=== PATIENT | female | born 1970 | race Caucasian/White ===

== ENCOUNTER 2020-04-06 09:27 | Outpatient (CLI) | payer BC ==
--- NOTE | 2020-04-06 10:04 | CT Report ---
PROCEDURE: Sinuses INDICATIONS: CHRONIC SINUSITIS TECHNIQUE: Noncontrast 3.0 mm axial images acquired from the frontal sinuses to the mid-sella, with coronal and sagittal reformats. For radiation dose reduction, the following was used: automated exposure control , adjustment of mA and/or kV according to patient size. COMPARISON: None. FINDINGS: Image quality: Excellent. Maxillary Sinuses: No bony remodeling or destruction. Sinuses are clear. Ethmoid Air Cells: No bony remodeling or destruction. Sinuses are clear. Sphenoid Sinuses: No bony remodeling or destruction. Sinuses are clear. Frontal Sinuses: No bony remodeling or destruction. Sinuses are clear. Ostiomeatal Complexes: Ostiomeatal complexes are patent. No Myra cells. Miscellaneous: Visualized intra-orbital contents are normal. No khris bullosa. S-shaped deviation of the nasal septum with spurring to the left at the level of the middle nasal turbinate. IMPRESSION: No findings of acute or chronic sinusitis. Nasal septal deviation. Reviewed by: Serg Grijalva MD on 04/06/2020 10:03 AM [facility] Approved by: Serg Grijalva MD on 04/06/2020 10:03 AM PST Station ID: [id number]
== END 2020-04-06 09:28 | disposition home or self-care (01) ==
LOC: DI 09:27
PROVIDERS: ATTEND Naprapath
DX: J34.2 Deviated nasal septum (principal)
CPT/HCPCS: 70486

== ENCOUNTER 2020-08-25 09:47 | Outpatient (CLI) | payer BC ==
--- NOTE | 2020-08-25 10:36 | XRAY Report ---
PROCEDURE: Toe(s) LT INDICATIONS: PAIN IN LEFT TOE, 5TH DIGIT TECHNIQUE: 3 views of the 5th toe(s) acquired. COMPARISON: None FINDINGS: Bones: Subtle lucency along the base of the middle phalanx of the fifth digit may represent nondispla jennie fracture. No dislocation. Moderate degenerative changes of the first metatarsophalangeal joint as well as within the midfoot. Focal regions of cortical thickening along the lateral aspect of the sec ond and third metatarsals. Soft tissues: Mild soft tissue swelling of the fifth toe. IMPRESSION: Questionable nondisplaced fracture of the middle phalanx of the fifth toe. Focal cortical thickening of the second and third digits may represent chronic stress changes. Moderate degenerative changes of the first metatarsophalangeal joint and midfoot. Reviewed by: Prashanth Faustin DO on 08/25/2020 9:35 AM [facility] Approved by: Prashanth Faustin DO on 08/25/2020 9:35 AM [facility] Station ID: [id number]
== END 2020-08-25 23:59 | disposition home or self-care (01) ==
LOC: DI.S 09:47
PROVIDERS: ATTEND Physician Assistant
DX: M19.072 Primary osteoarthritis, left ankle and foot (principal)

== ENCOUNTER 2021-09-06 22:08 | Emergency (ER) | payer BC ==
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
[2021-09-06] MEDS ORDERED: HYDROmorphone 1 MG/ML CARPUJECT IM STA ×2 (22:48→23:42)
[2021-09-06] MEDS ORDERED: SILVER SULFADIAZINE CREAM 25 GM TUBE TOP STA (22:48)
[2021-09-06] MEDS ORDERED: oxyCODONE 5 MG TABLET PO STA (23:42)
[2021-09-07 00:15] VITALS: BP 124/88
== END 2021-09-07 00:14 | disposition home or self-care (01) ==
LOC: ED 22:08
DX: T25.221A Burn of second degree of right foot, initial encounter (principal); T25.222A Burn of second degree of left foot, initial encounter; X12.XXXA Contact with other hot fluids, initial encounter; Y93.G9 Activity, other involving cooking and grilling
CPT/HCPCS: 99283; A9270; J1170

== ENCOUNTER 2023-01-15 07:00 | Outpatient (CLI) | payer BC ==
--- NOTE | 2023-01-15 16:48 | XRAY Report ---
PROCEDURE: Thoracic Spine 2 View INDICATIONS: THORACIC BACK PAIN/FALL TECHNIQUE: 2 views of the thoracic spine were acquired. COMPARISON: None. FINDINGS: Bones: No fractures or dislocations. No suspicious bony lesions. Visualized ribs are intact. Multil evel disc space narrowing and endplate osteophyte formation. Soft tissues: No paravertebral stripe thickening. IMPRESSION: Multilevel degenerative disc disease. No acute fracture. No osseous lesion. If symptoms and/or clinic al suspicion for pathology continue, further assessment with repeat plain films, or advanced imaging (e.g., CT, MRI, or bone scan) is recommended for further assessment. Reviewed by: Shweta Mckinley MD on 01/15/2023 4:47 PM PDT Approved by: Shweta Mckinley MD on 01/15/2023 4:47 PM PDT Station ID: [id number]
--- NOTE | 2023-01-15 16:48 | XRAY Report ---
PROCEDURE: Cervical Spine 2 View INDICATIONS: NECK PAIN/FALL TECHNIQUE: 4 view(s) of the cervical spine were acquired. COMPARISON: None. FINDINGS: Bones: No fractures or dislocations to the C7 level. The lateral masses of C1 appear intact on the odontoid view. No suspicious bony lesions. Multilevel disc space narrowing and endplate osteophyte formation as well as facet hypertrophy. Soft tissues: No prevertebral soft tissue swelling. IMPRESSION: Multilevel degenerative disc and facet disease. No acute fracture. No osseous lesion. If symptoms and/or clinical suspicion for pathology continue, further assessment with repeat plain film s, or advanced imaging (e.g., CT, MRI, or bone scan) is recommended for further assessment. Reviewed by: Shweta Mckinley MD on 01/15/2023 4:47 PM PDT Approved by: Shweta Mckinley MD on 01/15/2023 4:47 PM PDT Station ID: [id number]
== END 2023-01-15 23:59 | disposition home or self-care (01) ==
LOC: DI.S 07:00
PROVIDERS: ATTEND Registered Nurse
DX: M50.30 Other cervical disc degeneration, unspecified cervical region (principal); M47.812 Spondylosis without myelopathy or radiculopathy, cervical region; M51.34 Other intervertebral disc degeneration, thoracic region

== ENCOUNTER 2023-06-16 18:59 | Emergency (ER) | payer BC ==
[2023-06-16 20:20] VITALS: O2SAT 96
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
[2023-06-16 21:26] VITALS: BP 105/51
== END 2023-06-16 21:27 | disposition home or self-care (01) ==
LOC: ED 18:59
DX: G45.9 Transient cerebral ischemic attack, unspecified (principal); E78.00 Pure hypercholesterolemia, unspecified; Z79.899 Other long term (current) drug therapy; Z87.891 Personal history of nicotine dependence
CPT/HCPCS: 99281; 99283